=== PATIENT | female | born 1990 | race Caucasian/White ===

== ENCOUNTER 2019-11-27 09:30 | Outpatient (REF) | payer OTHER, SELFPAY ==
[2019-11-27 10:27] LABS: COVID-19 Test Negative (Negative)
== END 2019-11-27 09:31 | disposition home or self-care (01) ==
LOC: HO.LAB 09:30
PROVIDERS: Visit Provider Internal Medicine
DX: Z20.828 Contact with and (suspected) exposure to other viral communicable diseases (principal)
CPT/HCPCS: 87635

== ENCOUNTER 2020-01-26 14:18 | Outpatient (REF) | payer OTHER, SELFPAY ==
[2020-01-26 15:20] LABS: COVID-19 Test Negative (Negative); IDNOW Serial# 55D5AD1C
== END 2020-01-26 14:19 | disposition home or self-care (01) ==
LOC: HO.EMPCOV 14:18
PROVIDERS: Visit Provider Internal Medicine
DX: Z20.828 Contact with and (suspected) exposure to other viral communicable diseases (principal)
CPT/HCPCS: 87635; C9803

== ENCOUNTER 2020-01-30 15:25 | Outpatient (REF) | payer OTHER, SELFPAY ==
--- NOTE | 2020-01-30 | XR_ITS ---
EXAMINATION: XR ANKLE, RIGHT CLINICAL INFORMATION: Unable to ambulate. COMPARISON: None TECHNIQUE: AP, lateral, and mortise views of the right ankle. FINDINGS: There is moderate lateral malleolar soft tissue swelling with a small bony spur along the tip of lateral malleolus but no visible fracture or dislocation. The ankle mortise and subtalar joints are normal. XR/XR ankle RT min 3V IMPRESSION: Moderate lateral malleolar soft tissue swelling. No visible acute fracture, dislocation or subluxation seen.
== END 2020-01-30 15:26 | disposition home or self-care (01) ==
LOC: HO.XRAY 15:25
PROVIDERS: PCP Nurse Practitioner Family; Visit Provider Emergency Medicine Emergency Medical Services
DX: M25.571 Pain in right ankle and joints of right foot (principal)
CPT/HCPCS: 73610

== ENCOUNTER 2020-07-19 14:46 | Outpatient (REF) | payer OTHER, SELFPAY ==
[2020-07-20 06:06] LABS: CT PCR NOT DETECTED (Not Detect.); NG PCR NOT DETECTED (Not Detect.)
[2020-07-20 09:45] LABS: BV Int Neg Control Negative (Negative); BV Int Pos Control Positive (Positive)
== END 2020-07-19 14:47 | disposition home or self-care (01) ==
LOC: HO.LAB 14:46
PROVIDERS: PCP Nurse Practitioner Family; Visit Provider Advanced Practice Midwife
DX: Z11.3 Encounter for screening for infections with a predominantly sexual mode of transmission (principal); R10.2 Pelvic and perineal pain
CPT/HCPCS: 81003; 81025; 87480; 87491; 87510; 87591; 87660

== ENCOUNTER 2020-09-08 14:56 | Outpatient (REF) | payer OTHER, SELFPAY ==
--- NOTE | ~2020-09-08 | US_ITS ---
EXAMINATION: PELVIC ULTRASOUND CLINICAL INFORMATION: Pain COMPARISON: Previous pelvic ultrasound March 2019 TECHNIQUE: Transabdominal and transvaginal pelvic ultrasound was performed. Transvaginal exam was performed for better visualization of the uterus and ovaries. FINDINGS: The uterus is anteverted and measures 7.3 x 2.6 x 3.8 cm in dimension. There is an IUD in the uterus in satisfactory position. The endometrium does not appear thickened. No focal uterine lesion is seen. The right ovary is normal-appearing and measures 3.4 x 1.9 x 2.6 cm. The left ovary is enlarged and measures 6 x 4 x 5.7 cm. There is a 5.5 x 3.7 x 5.3 cm complex left ovarian this with thick septation and large solid component. There is a small amount of fluid in the pelvis. US/US pelvic and transvaginal IMPRESSION: IUD in the uterus in satisfactory position. New large complex left ovarian cyst and small amount of fluid in the pelvis. Follow-up pelvic ultrasound 10-12 weeks following several menstrual cycles is recommended.
== END 2020-09-08 14:57 | disposition home or self-care (01) ==
LOC: HO.US 14:56
PROVIDERS: Visit Provider Advanced Practice Midwife
DX: R10.2 Pelvic and perineal pain (principal)
CPT/HCPCS: 76830; 76856

== ENCOUNTER 2020-09-20 11:44 | Outpatient (REF) | payer OTHER, SELFPAY ==
[2020-09-22 02:12] LABS: CA-125 9 U/mL (<35)
== END 2020-09-20 11:45 | disposition home or self-care (01) ==
LOC: HO.LAB 11:44
PROVIDERS: PCP Nurse Practitioner Family; Visit Provider Advanced Practice Midwife
DX: N83.299 Other ovarian cyst, unspecified side (principal); N83.8 Other noninflammatory disorders of ovary, fallopian tube and broad ligament; Z97.5 Presence of (intrauterine) contraceptive device; Z71.2 Person consulting for explanation of examination or test findings
CPT/HCPCS: 36415; 86304